=== PATIENT | female | born 1995 | race Caucasian/White ===

== ENCOUNTER 2025-08-20 11:43 | Outpatient (CLI) | payer OTHER, SELFPAY ==
--- NOTE | ~2025-08-20 | XR_ITS ---
XR lumbar spine 2-3V Indication: Lumbago with sciatica, left/right side Comparison: None Findings: The vertebral heights are intact. No fracture or subluxation. Minimal loss of disc at L5-S1. Soft tissues unremarkable Impression: No acute abnormality. Reviewed, dictated and finalized at location P. NCE JOB TITLES Impression: No acute abnormality.
--- NOTE | ~2025-08-20 | XR_ITS ---
EXAMINATION: XR hip BI 2V w AP pelvis, 08/20/2025 11:51 [employer]TA[employer] HISTORY: Lumbago with sciatica, left/right side COMPARISON: No comparisons available. Findings: No acute fracture or malalignment. No significant degenerative changes. Soft tissues unremarkable. Impression: No acute fracture or malalignment. Reviewed, dictated and finalized at location P. INTAKE WORKER Impression: No acute fracture or malalignment.
== END 2025-08-20 11:44 | disposition home or self-care (01) ==
DX: M54.42 Lumbago with sciatica, left side (principal); M54.41 Lumbago with sciatica, right side
CPT/HCPCS: 72100; 73521